=== PATIENT | female | born 1995 | race Caucasian/White ===

== ENCOUNTER 2017-05-27 18:23 | Emergency (ER) | payer MEDICAID ==
[~2017-05-27] VITALS: Ht 157.5 cm; Wt 86.5 kg
[~2017-05-27 18:23] MED LIST: TRAZ50TA18 PO
[2017-05-27 18:31] VITALS: BP 121/82
== END 2017-05-27 19:16 | disposition home or self-care (01) ==
LOC: ED 19:10
DX: B34.9 Viral infection, unspecified (principal)
CPT/HCPCS: 99283

== ENCOUNTER 2019-12-24 08:28 | Emergency (ER) | payer MEDICAID ==
[~2019-12-24] VITALS: Ht 157.5 cm; Wt 75.7 kg
[~2019-12-24 08:28] MED LIST changes: -TRAZ50TA18 PO; +TRAZ50TA66 PO
[2019-12-24 08:31] VITALS: BP 109/74
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
[2019-12-24] MEDS ORDERED: ACETAMINOPHEN 325 MG TABLET ONE (08:56)
--- NOTE | 2019-12-24 08:59 | NUR ---
RAD IN ROOM FOR XR.
[2019-12-24] MEDS ORDERED: ACETAMINOPHEN 325 MG TABLET PO ONE (09:00)
--- NOTE | 2019-12-24 09:20 | NUR ---
task RN note: pt medicated per emar with tylenol. tolerated well. bp and spo2 monitors in place. pt a&o, resps even and unlabored, nadn.
--- NOTE | 2019-12-24 10:15 | NUR ---
Patient given discharge instructions and they have confirmed that they understand the instructions. Patient ambulatory with steady gait.
== END 2019-12-24 10:16 | disposition home or self-care (01) ==
LOC: ED 09:27
DX: S93.491A Sprain of other ligament of right ankle, initial encounter (principal); Z72.9 Problem related to lifestyle, unspecified; W07.XXXA Fall from chair, initial encounter; Y93.89 Activity, other specified; Y92.89 Other specified places as the place of occurrence of the external cause; Y99.8 Other external cause status
CPT/HCPCS: 99283

== ENCOUNTER 2020-01-23 07:24 | Emergency (ER) | payer MEDICAID ==
[~2020-01-23] VITALS: Ht 147.3 cm; Wt 69.8 kg
[2020-01-23 07:35] VITALS: BP 104/72
[2020-01-23] MEDS ORDERED: POLYTRIM OPHTH 10ML EACHEYE ONE (08:08)
--- NOTE | 2020-01-23 08:09 | NUR ---
MEAL TRAY ORDERED
--- NOTE | 2020-01-23 08:38 | NUR ---
PT GIVEN MEAL TRAY AND EYE GTTS
--- NOTE | 2020-01-23 09:37 | NUR ---
PT DISCHARGED WITH BOTTLE OF EYE DROPS, UNDERSTANDS INSTRUCTIONS
== END 2020-01-23 09:47 | disposition home or self-care (01) ==
LOC: ED 09:41
DX: H10.33 Unspecified acute conjunctivitis, bilateral (principal)
CPT/HCPCS: 99283

== ENCOUNTER 2020-05-31 13:32 | Emergency (ER) | payer MEDICAID ==
[~2020-05-31] VITALS: Ht 157.5 cm; Wt 78.7 kg
[2020-05-31 14:01] VITALS: BP 107/78
--- NOTE | 2020-05-31 14:17 | NUR ---
[facility] PT IS NOT FORTHCOMMING WITH INFORMATION. WHEN I ASK PROBING QUESTIONS ABOUT HER PAIN SHE BECOMES VERBALLY AGGRESSIVE WITH THIS RN. "I'M FUCKING HERE TO SEE A DOCTOR NOT ANSWER ALL THESE QUESTIONS. PT STATES HX OF DEP. ANXIETY, PTSD, ANGER MANAGEMENT.
--- NOTE | 2020-05-31 14:19 | NUR ---
ER LENORA MANCUSO AT BEDSIDE, PT MORE [id number] WITH PA EXAM.
--- NOTE | 2020-05-31 14:22 | NUR ---
DR LYNN AT BEDSIDE. TEST RESULTS REVIEWED AND ADMIT PLAN DISCUSSED.
[2020-05-31] MEDS ORDERED: MORPHINE SULFATE 4 MG/ML, 1ML IVPush PRN (14:30)
[2020-05-31] MEDS ORDERED: ONDANSETRON 2MG/ML, 2ML IVPush ONE (14:30)
[2020-05-31] MEDS ORDERED: SODIUM CHLORIDE FLUSH 10ML SYR IVF ONE (14:30)
[2020-05-31 14:42] LABS: BASOPHILS % (AUTO) 1 % (0-1); EOSINOPHILS % (AUTO) 2 % (1-7); LYMPHOCYTES % (AUTO) 17 % (22-44); MEAN CORPUSCULAR HEMOGLOBIN 31.1 pg (27.0-34.8); MEAN CORPUSCULAR HGB CONC 33.2 g/dL (32.4-35.8); MEAN PLATELET VOLUME 6.7 fL (7.4-10.4); MONOCYTES % (AUTO) 6 % (2-9); NEUTROPHILS % (AUTO) 74 % (42-75); PLATELET COUNT 399 x10^3/uL (130-400); RED BLOOD COUNT 4.16 x10^6/uL (3.82-5.3)
[2020-05-31 14:51] LABS: ALANINE AMINOTRANSFERASE 68 U/L (12-78); ALBUMIN 3.3 g/dL (3.4-5.0); ANION GAP 5 mmol/L (5-15); CALCIUM 8.9 mg/dL (8.5-10.1); CHLORIDE 107 mmol/L (98-107); CREATININE 0.79 mg/dL (0.55-1.02)
[2020-05-31 14:54] LABS: MD NO
[2020-05-31 14:56] LABS: ALKALINE PHOSPHATASE 59 U/L (45-117); BILIRUBIN,TOTAL 0.2 mg/dL (0.2-1.0)
--- NOTE | 2020-05-31 15:38 | NUR ---
BREAK RN: PT SLEEPING, ASKED IF SHE PROVIDE A URINE, PT VERBALIZED UNDERSTANDING. URINE CUP GIVEN AND EXPLAINED CLEAN CATCH
--- NOTE | 2020-05-31 16:13 | NUR ---
Patient/Caregiver given discharge instructions and they have confirmed that they understand the instructions. Patient ambulatory with steady gait.
== END 2020-05-31 16:14 | disposition home or self-care (01) ==
LOC: ED 14:51
DX: K29.00 Acute gastritis without bleeding (principal); R10.13 Epigastric pain; F17.290 Nicotine dependence, other tobacco product, uncomplicated
CPT/HCPCS: 36415; 76700; 80053; 80307; 83690; 84703; 85025; 99284